=== PATIENT | male | born 1935 | race Native Hawaiian/Other Pacific Islander ===

== ENCOUNTER 2020-05-23 14:34 | Outpatient (CLI) | payer OTHER | END 2020-05-23 19:24 | disposition home or self-care (01) | LOC: RESP 14:34 | DX: R55 Syncope and collapse (principal) ==

== ENCOUNTER 2020-06-09 08:44 | Outpatient (CLI) | payer OTHER ==
[~2020-06-09] VITALS: Ht 182.9 cm; Wt 90.7 kg
== END 2020-06-09 23:02 | disposition home or self-care (01) ==
LOC: NM 08:44
DX: I20.8 Other forms of angina pectoris (principal); R42 Dizziness and giddiness; I10 Essential (primary) hypertension; R06.02 Shortness of breath
CPT/HCPCS: A9500; J2785